=== PATIENT | male | born 1955 | race Caucasian/White ===

== ENCOUNTER 2024-12-22 14:02 | Inpatient (IN) | payer OTHER, MEDICAID ==
[~2024-12-22] VITALS: Ht 167.6 cm; Wt 99.8 kg
[2024-12-22 14:13] VITALS: O2SAT 95
[2024-12-22] MEDS: ACETAMINOPHEN 325MG TABLET PO STA (14:45)
[2024-12-22] MEDS: PIPERACILLIN/TAZO 3.375G/50ML 50 ML IV STA (14:47)
[2024-12-22 14:58] LABS: HEMATOCRIT. 37.3 % (42.0-52.0); HEMOGLOBIN. 12.3 g/dL (14.0-18.0); MEAN CORPUSCULAR HEMOGLOBIN 30.9 pg (28.0-32.0); MEAN CORPUSCULAR HGB CONC 32.9 g/dL (31.0-37.0); MEAN CORPUSCULAR VOLUME 93.8 fL (80.0-94.0); MEAN PLATELET VOLUME 7.6 fl (7.4-10.4); PLATELET 149 x1000/uL (130-400); RED BLOOD CELL COUNT 3.98 mill/uL (4.7-6.1); RED CELL DISTRIBUTION WIDTH 18.1 % (11.6-14.6); WHITE BLOOD COUNT 11.6 x1000/uL (4.5-11.0)
[2024-12-22 15:05] LABS: DIFFERENTIAL COMMENT 1
[2024-12-22 15:08] LABS: CHLORIDE 96 mEq/L (98-107); POTASSIUM 5.2 mEq/L (3.5-5.1); SODIUM 134 mEq/L (136-145)
[2024-12-22 15:09] LABS: CALCIUM 8.4 mg/dL (8.7-10.4); CARBON DIOXIDE 20 mEq/L (21-32)
[2024-12-22 15:14] LABS: GLUCOSE 117 mg/dL (70-105)
[2024-12-22 15:16] LABS: ALANINE AMINOTRANSFERASE 20 IU/L (10-49); ALBUMIN 4.1 g/dL (3.2-4.8); ASPARTATE AMINOTRANSFERASE 35 IU/L (<34); BILIRUBIN DIRECT 0.1 mg/dL (<=3.0); BILIRUBIN TOTAL 0.2 mg/dL (0.1-1.0)
[2024-12-22] MEDS: VANCOMYCIN 1G PREMIX 200 ML IV STA (15:18)
[2024-12-22 15:27] LABS: INR 1.1; PROTHROMBIN TIME 11.3 sec (9.6-11.0)
[2024-12-22 15:36] LABS: CREATININE 11.6 mg/dL (0.6-1.3); TROPONIN I HIGH SENSITIVITY 633 ng/L (3.0-53); UREA NITROGEN BLOOD 111 mg/dL (9-23)
[2024-12-22 15:40] LABS: INFLUENZA TYPE A Presumptive Negative (Pres. Neg.); INFLUENZA TYPE B Presumptive Negative (Pres. Neg.)
[2024-12-22 15:49] LABS: ANISOCYTOSIS 1+; PLATELET ESTIMATE NORMAL
[2024-12-22] MEDS: ASPIRIN 325MG TABLET PO ONE (16:00)
[2024-12-22 17:47] LABS: TROPONIN I HIGH SENSITIVITY 740 ng/L (3.0-53)
[2024-12-22 18:38] VITALS: BP 126/73; PULSE 84; RESP 20; TEMP 36.3; O2SAT 99
[2024-12-22] MEDS ORDERED: AMLO-905 PO (20:11)
[2024-12-22 20:16] VITALS: BP 129/70; PULSE 82; RESP 20; TEMP 36.8
[2024-12-22 20:21] VITALS: BP 129/70; PULSE 82; RESP 20; TEMP 36.8; O2SAT 97
[2024-12-22] MEDS ORDERED: GUAIFENESIN 200MG/10ML SUGAR FREE UDC PO PRN (20:30)
[2024-12-22] MEDS ORDERED: IPRATROPIUM/ALBUTEROL 0.5-3(2.5)MG/3ML NEB HHN PRN (20:30)
[2024-12-22] MEDS ORDERED: ONDANSETRON HCL 4MG/2ML INJ IV PRN (20:30)
[2024-12-22] MEDS ORDERED: ACETAMINOPHEN 325MG TABLET PO PRN ×2 (20:30)
[2024-12-22] MEDS ORDERED: CLONIDINE 0.1MG TABLET PO PRN (20:30)
[2024-12-22] MEDS: CEFTRIAXONE 1GM/50ML 50 ML IV SCH (21:21)
[2024-12-22] MEDS ORDERED: DEXTROSE 50% WATER 50ML SYRINGE IV PRN (21:45)
[2024-12-22] MEDS: LORAZEPAM 0.5MG TABLET PO NR (21:49)
[2024-12-22] MEDS: AZITHROMYCIN 500MG/250ML 250 ML IV SCH (22:13)
[2024-12-23] VITALS: BP 110/80; PULSE 80; RESP 20; TEMP 36.7; O2SAT 98
[2024-12-23 00:45] LABS: IRON 14 ug/dL (65-175)
[2024-12-23 00:48] LABS: TOTAL IRON BINDING CAPACITY 197 ug/dl (250-425)
[2024-12-23 00:53] LABS: FERRITIN 539 ng/mL (22-322); FOLIC ACID (FOLATE) SERUM 18.54 ng/mL (>5.38)
[2024-12-23 00:54] LABS: VITAMIN B12 SERUM 1682 pg/mL (211-911)
[2024-12-23 01:03] LABS: TROPONIN I HIGH SENSITIVITY 482 ng/L (3.0-53)
[2024-12-23 04:00] VITALS: BP 108/69; PULSE 69; RESP 18; TEMP 36.7; O2SAT 98
[2024-12-23 06:35] LABS: CARBON DIOXIDE 20 mEq/L (21-32); CHLORIDE 94 mEq/L (98-107); SODIUM 134 mEq/L (136-145)
[2024-12-23 06:36] LABS: CALCIUM 8.5 mg/dL (8.7-10.4)
[2024-12-23 06:40] LABS: HEMATOCRIT. 38.6 % (42.0-52.0); HEMOGLOBIN. 12.9 g/dL (14.0-18.0); MEAN CORPUSCULAR HEMOGLOBIN 30.8 pg (28.0-32.0); MEAN CORPUSCULAR HGB CONC 33.3 g/dL (31.0-37.0); MEAN CORPUSCULAR VOLUME 92.4 fL (80.0-94.0); PLATELET 142 x1000/uL (130-400); RED BLOOD CELL COUNT 4.18 mill/uL (4.7-6.1); RED CELL DISTRIBUTION WIDTH 17.9 % (11.6-14.6); WHITE BLOOD COUNT 13.6 x1000/uL (4.5-11.0)
[2024-12-23 06:41] LABS: GLUCOSE 102 mg/dL (70-105); TRIGLYCERIDE 347 mg/dL (0-150)
[2024-12-23 06:42] LABS: LDL CHOLESTEROL 14 mg/dL (5-100); T4 FREE 0.83 ng/dL (0.89-1.76); THYROID STIMULATING HORMONE 2.55 uIU/mL (0.55-4.78)
[2024-12-23 06:43] LABS: CHOLESTEROL 98 mg/dL (<200); HDL CHOLESTEROL < 20 mg/dL (>55)
[2024-12-23 07:00] LABS: DIFFERENTIAL COMMENT 1
[2024-12-23 07:05] LABS: TROPONIN I HIGH SENSITIVITY 316 ng/L (3.0-53)
[2024-12-23 07:06] LABS: UREA NITROGEN BLOOD 116 mg/dL (9-23)
[2024-12-23 07:08] LABS: CREATININE 13.2 mg/dL (0.6-1.3)
[2024-12-23 08:00] VITALS: BP 124/73; PULSE 77; RESP 18; TEMP 36.6; O2SAT 97
[2024-12-23] MEDS: FUROSEMIDE 40MG/4ML VIAL IV SCH (08:30)
[2024-12-23] MEDS: FAMOTIDINE 20MG/2ML VIAL IV SCH (08:30)
[2024-12-23] MEDS: ASPIRIN 81MG EC TABLET PO SCH (09:15)
[2024-12-23] MEDS: AMLODIPINE 10MG TABLET PO SCH (09:17)
[2024-12-23 12:00] VITALS: BP 121/70; PULSE 78; RESP 19; TEMP 36.7; O2SAT 96
[2024-12-23 12:40] LABS: ANISOCYTOSIS 1+; PLATELET ESTIMATE NORMAL
[2024-12-23 16:00] VITALS: BP 126/74; PULSE 81; RESP 20; TEMP 36.8; O2SAT 96
== END 2024-12-23 17:09 | disposition left against medical advice (07) | DRG 280 ==
LOC: ER 14:42 → EDBEDREQ 15:41 → 8WST 17:40 → EDBEDREQ 17:42
PROVIDERS: ADMIT Internal Medicine; ATTEND Internal Medicine
DX: I21.4 Non-ST elevation (NSTEMI) myocardial infarction (principal); J96.01 Acute respiratory failure with hypoxia; N18.6 End stage renal disease; I13.11 Hypertensive heart and chronic kidney disease without heart failure, with stage 5 chronic kidney disease, or end stage renal disease; Z53.29 Procedure and treatment not carried out because of patient's decision for other reasons; E87.1 Hypo-osmolality and hyponatremia; Z59.02 Unsheltered homelessness; E87.70 Fluid overload, unspecified; E87.5 Hyperkalemia; D64.9 Anemia, unspecified; Z20.822 Contact with and (suspected) exposure to COVID-19; J06.9 Acute upper respiratory infection, unspecified; Z99.2 Dependence on renal dialysis; Z79.899 Other long term (current) drug therapy; Z91.158 Patient's noncompliance with renal dialysis for other reason
CPT/HCPCS: 36415; 71045; 80048; 80061; 80076; 82607; 82728; 82746; 83036; 83540; 83550; 83605; 83735; 83880; 84100; 84439; 84443; 84484; 85025; 87186; 87426; 87804; 93005; 93970; 96365; 96367; 99291; A4606; J0456; J0696; J1940; J2543; J3370; J3490